=== PATIENT | female | born 1995 | race Caucasian/White ===

== ENCOUNTER 2019-08-04 16:10 | Emergency (ER) | payer MEDICAID ==
[~2019-08-04] VITALS: Ht 160 cm; Wt 55.7 kg
[2019-08-04 17:05] LABS: CLARITY,URINE SLIGHTLY CLOUDY (Clear); COLOR,URINE YELLOW (Yellow); GLUCOSE, URINE NEGATIVE (Neg); KETONES,URINE NEGATIVE (Neg); LEUKOCYTE ESTERASE ,URINE NEGATIVE (Neg); NITRITES, URINE NEGATIVE (Neg); OCCULT BLOOD,URINE NEGATIVE (Neg); PH,URINE 7.5 (4.8-8.0); PROTEIN,URINE NEGATIVE (Neg); UA COLLECTION TYPE CLN CATCH MIDSTREAM; UROBILINOGEN,URINE 0.2 E.U/dL (0.2-1.0)
[2019-08-04 17:07] LABS: URINE HCG NEGATIVE (NEG)
[2019-08-04 17:10] LABS: MUCUS STRANDS FEW /LPF (Neg); SQUAMOUS EPITHELIAL CELL,UR MANY /LPF (FEW)
[2019-08-04 17:12] LABS: AMORPHOUS PHOSPHATES 1+
[2019-08-04 17:13] LABS: RBC,URINE 0-2 /HPF (0-2); WBC,URINE 0-4 /HPF (0-4)
[2019-08-04 17:14] LABS: BACTERIA,URINE 1+ /HPF (Neg)
[2019-08-04 17:15] LABS: SPERM FEW /HPF
[2019-08-04] MEDS ORDERED: ibuprofen 200mg tablet PO ONE (17:20)
[2019-08-04 17:38] VITALS: BP 119/72
[2019-08-04] MEDS ORDERED: LIDOcaine 5% patch TP STA (23:44)
== END 2019-08-04 19:53 | disposition home or self-care (01) ==
LOC: ER 16:10
DX: R10.31 Right lower quadrant pain (principal); R11.0 Nausea
CPT/HCPCS: 74018; 81001; 81025; 87210; 99284

== ENCOUNTER 2019-12-22 19:45 | Emergency (ER) | payer MEDICAID ==
[~2019-12-22] VITALS: Ht 162.6 cm; Wt 57.1 kg
[2019-12-22 19:53] VITALS: BP 127/73
[2019-12-22] MEDS ORDERED: ibuprofen tablet 400 MG TABLET PO ONE (22:00)
== END 2019-12-22 22:13 | disposition home or self-care (01) ==
LOC: ER 19:46
DX: M79.672 Pain in left foot (principal)
CPT/HCPCS: 73610; 73630; 99284

== ENCOUNTER 2020-04-09 16:26 | Emergency (ER) | payer MEDICAID ==
[~2020-04-09] VITALS: Ht 162.6 cm; Wt 63.6 kg
[2020-04-09] MEDS ORDERED: HYDROcodone/acetaminophen 5mg/325mg tablet PO ONE (17:00)
--- NOTE | 2020-04-09 17:50 | NUR ---
PT BEING TAKE TO MRI
== END 2020-04-09 19:56 | disposition home or self-care (01) ==
LOC: ER 16:27
DX: S93.402A Sprain of unspecified ligament of left ankle, initial encounter (principal); M79.7 Fibromyalgia; Z87.81 Personal history of (healed) traumatic fracture; W01.0XXA Fall on same level from slipping, tripping and stumbling without subsequent striking against object, initial encounter; Y93.89 Activity, other specified; Y92.89 Other specified places as the place of occurrence of the external cause; Y99.8 Other external cause status
CPT/HCPCS: 73610; 73721; 99284